=== PATIENT | male | born 1955 | race Two or more races ===

== ENCOUNTER 2024-11-25 10:15 | Inpatient (IN) | payer OTHER, MEDICAID ==
[~2024-11-25] VITALS: Ht 175.3 cm; Wt 71.5 kg
--- NOTE | 2024-11-25 10:45 | ED.PDOC ---
History of Present Illness HPI Comments 69 y/o M, with PMHx of DM, HTN, and HLD presents to the ED for CC of generalized weakness. Patient reports, he has been experiencing symptoms of generalized weakness with associated sweats, malaise, and dysuria x1day. Patient denies fever, headache, vomiting, or diarrhea. No other symptoms or modifying factors present at this time. Time Seen by MD: 10:38 Reviewed Notes: Nurses Notes, Medications, Allergies Information Source: Patient Mode of Arrival: Ambulatory Severity: Moderate Timing: Days Duration: Since onset Prehospital treatment: None Past Medical History PAST MEDICAL HISTORY: DM, High Lipids, HTN Surgical History: Denies all surgeries Family History Family History: Unknown Social History Smoker: Non-Smoker Alcohol: Denies ETOH Use Drugs: Denies Drug Use Lives In: Home Constitutional: reports: malaise, sweats, weakness; denies: chills, diaphoresis, fatigue, fever, others EENTM: denies: blurred vision, double vision, ear bleeding, ear discharge, ear drainage, ear pain, ear ringing, eye pain, eye redness, hearing loss, mouth pain, mouth swelling, nasal discharge, nose bleeding, nose congestion, nose pain, photophobia, tearing, throat pain, throat swelling, voice changes, others Respiratory: denies: cough, hemoptysis, orthopnea, SOB at rest, shortness of breath, SOB with excertion, stridor, wheezing, others Cardiovascular: denies: chest pain, dizzy spells, diaphoresis, Dyspnea on exertion, edema, irregular heart beat, left arm pain, lightheadedness, palpitations, PND, syncope, others Gastrointestinal: denies: abdomen distended, abdominal pain, blood streaked bowels, constipated, diarrhea, dysphagia, difficulty swallowing, hematemesis, melena, nausea, poor appetite, poor fluid intake, rectal bleeding, rectal pain, vomiting, others Genitourinary: reports: dysuria; denies: burning, flank pain, frequency, hematuria, incontinence, penile discharge, penile sore, pain, testicle pain, testicle swelling, urgency, others Neurological: denies: dizziness, fainting, headache, left sided numbness, left sided weakness, numbness, paresthesia, pre-existing deficit, right sided numbness, right sided weakness, seizure, speech problems, tingling, tremors, weakness, others Musculoskeletal: denies: back pain, gout, joint pain, joint swelling, muscle pain, muscle stiffness, neck pain, others Integumetry: denies: bruises, change in color, change in hair/nails, dryness, laceration, lesions, lumps, rash, wounds, others Allergic/Immunocompromised: denies: Difficulty Healing, Frequent Infections, Hives, Itching, others Hematologic/Lymphatic: denies: anemia, blood clots, easy bleeding, easy bruising, swollen glands, others Endocrine: denies: excessive hunger, excessive sweating, excessive thirst, excessive urination, flushing, intolerance to cold, intolerance to heat, unexplained weight gain, unexplained weight loss, others Psychiatric: denies: anxiety, bipolar disorder, depression, hopeless, panic disorder, schizophrenia, sleepless, suicidal, others All Other Systems: Reviewed and Negative Physical Exam General Appearance: Moderate Distress HEENT: Normal ENT Inspection, Pharynx Normal, TMs Normal Neck: Full Range of Motion, Non-Tender, Normal, Normal Inspection Respiratory: Chest Non-Tender, Lungs Clear, No Accessory Muscle Use, No Respiratory Distress, Normal Breath Sounds Cardiovascular: No Edema, No JVD, No Murmur, No Gallop, Normal Peripheral Pulses, Regular Rate/Rhythm Breast Exam: Deferred Gastrointestinal: No Organomegaly, Non Tender, No Pulsatile Mass, Normal Bowel Sounds, Soft Genitalia: Deferred Pelvic: Deferred Rectal: Deferred Extremities: No calf tenderness, Normal capillary refill, Normal inspection, Normal range of motion, Non-tender, No pedal edema Musculoskeletal : Apperance: Normal Neurologic: Alert, real time trader II-XII nml as Tested, No Motor Deficits, Normal Affect, Normal Mood, No Sensory Deficits Cerebellar Function: Normal Reflexes: Normal Skin: Dry, Normal Color, Warm Peripheral Pulses: 3+ Radial (R), 3+ Radial (L) Lymphatic: No Adenopathy Was a procedure done? Was a procedure done?: No Differential Dx Considerations may include: UTI, HYPOGLYCEMIA, ELECTROLYTE IMBALANCE X-Ray, Labs, Meds, VS Vital Signs Date Time Temp Pulse Resp B/P (MAP) Pulse Ox O2 Delivery O2 Flow Rate FiO2 11/25/24 11:32 100.1 100.1 11/25/24 11:15 125 16 121/96 (104) 95 11/25/24 11:15 Room Air* 0 21 11/25/24 11:08 130 11/25/24 11:07 97.7 131 18 123/70 (87) 95 97.7 Lab Test 11/25/24 11:15 11/25/24 10:58 Range/Units White Blood Count 22.5 H 4.4-10.8 10^3/uL Red Blood Count 5.00 4.5-5.90 10^6/uL Hemoglobin 14.3 13.5-17.5 g/dL Hematocrit 41.5 41.0-53.0 % Mean Corpuscular Volume 83.1 80.0-100.0 fL Mean Corpuscular Hemoglobin 28.6 28.0-32.0 pg Mean Corpuscular Hemoglobin Concent 34.4 32.0-36.0 g/dL Red Cell Distribution Width 13.9 11.8-14.3 % Platelet Count 226 140-450 10^3/uL Mean Platelet Volume 8.0 6.9-10.8 fL Neutrophils (%) (Auto) 37.0-80.0 % Lymphocytes (%) (Auto) 10.0-50.0 % Monocytes (%) (Auto) 0.0-12.0 % Basophils (%) (Auto) 0.0-2.0 % Neutrophils # (Auto) 1.6-8.6 10 ^3/uL Lymphocytes # (Auto) 0.4-5.4 10 ^3/uL Monocytes # (Auto) 0-1.3 10 ^3/uL Differential Total Cells Counted 100.0 100 Neutrophils % (Manual) 89 H 37.0-80.0 Band Neutrophils % (Manual) 0 Lymphocytes % (Manual) 3 L 10.0-50.0 Monocytes % (Manual) 6 0-12 Eosinophils % (Manual) 0 0-7 Basophils % (Manual) 0 0.0-2.0 Metamyelocytes % (manual) 2 Myelocytes % (Manual) 0 Promyelocytes % (Manual) 0 Blast Cells % (Manual) 0 Reactive Lymphocytes 0 Platelet Estimate Adequate Sodium Level 136 136-145 mmol/L Potassium Level 4.1 3.5-5.1 mmol/L Chloride Level 101 98-107 mmol/L Carbon Dioxide Level 25 20-31 mmol/L Anion Gap 10 5-15 Blood Urea Nitrogen 13 9-23 mg/dL Creatinine 0.99 0.700-1.30 mg/dL Glomerular Filtration Rate Calc 81 >90 mL/min BUN/Creatinine Ratio 13.1 10.0-20.0 Serum Glucose 201 H 74-106 mg/dL Calcium Level 9.2 8.7-10.4 mg/dL Troponin I High Sensitivity 5 </=54 ng/L POC Glucose 203 H 70-106 mg/dl Patient alert. Complaining of generalized weakness. Blood sugar elevated. Vitals stable. Cardiac marker within normal limits. WBC elevated. He is tachycardic. No leg swelling. Unknown where he is getting his white cell count. CT of the abdomen. Establish intravenous access. Was given fluids. Was given Rocephin. Was given Flagyl. Continue to monitor. Time of 1ST Reevaluation: 11:08 Reevaluation 1ST: Unchanged Patient Education/Counseling: Diagnosis, Treatment Family Education/Counseling: No Family Present Departure 1 Departure Time of Disposition: 13:14 Impression: Primary Impression: Uncontrolled diabetes mellitus Qualified Codes: E13.65 - Other specified diabetes mellitus with hyperglycemia Additional Impressions: Generalized weakness Leukocytosis Qualified Codes: D72.829 - Elevated white blood cell count, unspecified Disposition: ADMITTED INPATIENT Admit to: Med Surg Condition: Guarded Critical Care Note Critical Care Time?: No Stability Stability form required: No Heart Score Heart Score: Heart Score Response (Comments) Value History N/A 0 EKG N/A 0 Age N/A 0 Risk Factors N/A 0 Troponin N/A 0 Total 0 I personally scribed for JOSE EDUARDO GENTILE MD ([email or web address]) on 11/25/24 at 10:45. Electronically submitted by Ileana Kapoor [email or web address]). JOSE EDUARDO GENTILE MD November 25, 2024 10:45
[2024-11-25 11:32] LABS: Hematocrit 41.5 % (41.0-53.0); Hemoglobin 14.3 g/dL (13.5-17.5); Mean Corpuscular Hemoglobin 28.6 pg (28.0-32.0); Mean Corpuscular Hgb Conc. 34.4 g/dL (32.0-36.0); Mean Corpuscular Volume 83.1 fL (80.0-100.0); Platelet Count (auto) 226 10^3/uL (140-450); Red Cell Distribution Width 13.9 % (11.8-14.3); White Blood Cell 22.5 10^3/uL (4.4-10.8)
[2024-11-25 11:41] LABS: Chloride 101 mmol/L (98-107); Potassium 4.1 mmol/L (3.5-5.1)
[2024-11-25 11:42] LABS: Anion Gap 10 (5-15); Calcium 9.2 mg/dL (8.7-10.4); Carbon Dioxide 25 mmol/L (20-31); Sodium 136 mmol/L (136-145)
[2024-11-25 11:47] LABS: BUN/Creatinine Ratio 13.1 (10.0-20.0); Blood Urea Nitrogen 13 mg/dL (9-23)
--- NOTE | 2024-11-25 11:47 | DVH ---
CHEST RADIOGRAPH Indication: sob Technique: Single frontal view of the chest was obtained COMPARISON: None FINDINGS: Lines and Tubes: None Lungs: Hazy opacity in the right lower lobe. Pleura: No effusion. No pneumothorax. Cardiomediastinal contours: Unremarkable Bones: Unremarkable IMPRESSION: Hazy airspace opacity in the right lower lobe may represent atelectasis or developing pneumonia. Cli nical correlation advised.
[2024-11-25 11:48] LABS: Glucose 201 mg/dL (74-106)
[2024-11-25 11:49] LABS: Band Neutrophils % (manual) 0; Basophils % (manual) 0 (0.0-2.0); Blast Cells 0; Eosinophils % (manual) 0 (0-7); Myelocytes % 0; Promyelocytes % 0; Reactive Lymphocytes 0
[2024-11-25 12:34] LABS: Lymphocytes % (manual) 3 (10.0-50.0); Metamyelocytes % 2; Monocytes % (manual) 6 (0-12)
[2024-11-25 12:35] LABS: Platelet Estimate Adequate
--- NOTE | 2024-11-25 13:48 | DVH ---
Exam: CT CT AB PEL WO CON-NO ORAL OR IV History: colitis Comparison Study: None TECHNIQUE: Multidetector CT of the abdomen and pelvis without IV contrast. Axial, coronal and sagitta l multiplanar reformats were obtained from the axial data set by the technologist. Radiation Dose Information: CT Dose: CTDI volume is 6.28 mGy. Dose-length product is 357.59 mGy*cm FINDINGS: Bibasilar atelectasis. Partially visualized heart is unremarkable. Liver, spleen, gallbladder, pancreas and adrenal glands unremarkable. Subtle 1.2 cm left renal upper pole cyst with 1.4 cm right renal lower pole cyst. Otherwise, kidneys , ureters and urinary bladder are unremarkable. Prostate is enlarged measuring 4.9 x 7.6 x 5.5 cm. Stomach is unremarkable. Small bowel loops unremarkable. Appendix is unremarkable. Moderate to large amount of fecal material within the colon. No evidence of intraperitoneal free air or free fluid. No evidence of aortic aneurysm. No significant lymphadenopathy. Small fat containing bilateral inguinal hernias. No destructive osseous lesions are noted. Sclerotic focus of the left acetabular roof which may represent a bone island with a lucent lesion not excluded . IMPRESSION: No evidence of acute abdominopelvic abnormalities. Moderate to large amount of fecal material within the colon. Findings to suggest colitis. Enlarged prostate. Recommend correlation with PSA.
[2024-11-25] MEDS: POLYETHYLENE GLYCOL 17 GM PWDR PO ONE (14:30)
[2024-11-25] MEDS: LACTULOSE 20Gm/30ML SOLN PO ONE (14:30)
[2024-11-25] MEDS ORDERED: DEXTROSE (50%) 50ML SYRG IV PRN (14:30)
--- NOTE | 2024-11-25 14:41 | DVHHPRES ---
History of Present Illness Resident Creating Document: SHERRILL BARRETT History of Present Illness This is a 69-year-old male with past medical history of type 2 diabetes mellitus, hypertension, dyslipidemia, BPH who presented to the ED with chief complaint of generalized weakness associated with dizziness and recurrent falls. The patient also reported acute epigastric pain associated with dysuria. The patient states that these symptoms started this morning before coming to the ED. The patient rates the pain as 8/10 on the pain scale. Patient described the pain as a sharp pain localized in the epigastrium redo with no specific pattern or radiation. The patient was reports that since yesterday night he started having dysuria and burning sensation. Initial CBC showed a WBC of 22.5. Initial chest x-ray showed a right lower lobe atelectases but pneumonia could not be ruled out. Rest of BMP was grossly unremarkable. We are direct lactic acid, lipase levels, urinalysis and urine culture. We also ordered a CT of the abdomen and pelvis. Patient was started on IV fluids of normal saline at 1000 cc/hour as a bolus. Patient was also started on IV ceftriaxone and metronidazole. Patient will be admitted for further assessment and management. Cardiovascular: HTN, hyperipidemia GI: Constipation Renal/: Benign prostatic enlarg. Endocrine: Diabetes Past Surgical History: None Family History: None Smoke: No ALCOHOL: occassional Drugs: None Lives: with Family Domestic Violence: Neg Review of Systems Constitutional: Yes: Fever, Sweats; No: Chills, Weakness, Malaise, Other Eyes: No: Pain, Vision change, Conjunctivae inflammation, Eyelid inflammation, Other, Redness ENT: No: Ear pain, Ear discharge, Nose pain, Nose discharge, Nose congestion, Mouth pain, Mouth swelling, Throat pain, Throat swelling, Other Respiratory: No: Cough, Dry, Shortness of breath, SOB with excertion, Wheezing, Hemoptysis, Pleuritic Pain, Sputum, Wheezing, Other Cardiovascular: No: Chest Pain, Palpitations, Orthopnea, Paroxysmal Noc. Dyspnea, Edema, Lt Headedness, Other Gastrointestinal: Abdominal Pain, Constipation; No: Nausea, Vomiting, Diarrhea, Melena, Hematochezia, Other Genitourinary: Dysuria; No Frequency, No Incontinence, No Hematuria, No Retention, No Other Musculoskeletal: No: other, neck pain, shoulder pain, arm pain, back pain, hand pain, leg pain, foot pain Skin: No: Rash, Lesions, Jaundice, Bruising, Other Neurological: Weakness; No: Numbness, Incoordination, Change in speech, Confusion, Seizures, Other Allergies: Coded Allergies: NO KNOWN ALLERGIES (Unverified , 11/25/24) Medications Current Medications Medications Dose Ordered Sig/Fartun Route Start Time Stop Time Status Last Admin Dose Admin Acetaminophen 650 mg Q6HP PRN PO 11/25/24 14:15 UNV Enoxaparin Sodium 40 mg DAILY SC 11/26/24 10:00 UNV Diagnostic Test (Pha) 1 strip ACHS 11/25/24 17:00 UNV Insulin Human Regular ACHS SC 11/25/24 17:00 UNV Dextrose 50 ml UD PRN IV 11/25/24 14:30 UNV Atorvastatin Calcium 20 mg DAILY PO 11/25/24 20:00 UNV Tamsulosin HCl 0.4 mg DAILY PO 11/25/24 20:00 UNV Losartan Potassium 25 mg DAILY PO 11/26/24 10:00 UNV Exam Vital Signs Vital Signs Date Time Temp Pulse Resp B/P (MAP) Pulse Ox O2 Delivery O2 Flow Rate FiO2 11/25/24 11:32 100.1 100.1 11/25/24 11:15 125 16 121/96 (104) 95 11/25/24 11:15 Room Air* 0 21 General Appearance: Alert, Oriented X3, Cooperative, No acute distress HEENT: Atraumatic, PERRLA, EOMI, Mucous membr. moist/pink Respiratory: Clear to auscultation, Normal air movement Cardiovascular: Regular rate, Normal S1, Normal S2, No murmurs Abdominal: Normal bowel sounds, Soft, No tenderness, No hepatospenomegaly, No masses Extremities: No clubbing, No cyanosis, No edema, Normal pulses, No tenderness/swelling Skin: No rashes, No breakdown, No significant lesion Neuro: Normal gait, Normal speech, Strength at 5/5 X4 ext, Normal tone, Sensation intact, Cranial nerves 3-12 NL, Reflexes 2+ Psych/Mental Status: Mental status NL, Mood NL Labs/Xrays Labs Test 11/25/24 13:28 11/25/24 11:15 11/25/24 10:58 Range/Units Lactic Acid Level 1.6 0.4-2.0 mmol/L White Blood Count 22.5 H 4.4-10.8 10^3/uL Red Blood Count 5.00 4.5-5.90 10^6/uL Hemoglobin 14.3 13.5-17.5 g/dL Hematocrit 41.5 41.0-53.0 % Mean Corpuscular Volume 83.1 80.0-100.0 fL Mean Corpuscular Hemoglobin 28.6 28.0-32.0 pg Mean Corpuscular Hemoglobin Concent 34.4 32.0-36.0 g/dL Red Cell Distribution Width 13.9 11.8-14.3 % Platelet Count 226 140-450 10^3/uL Mean Platelet Volume 8.0 6.9-10.8 fL Neutrophils (%) (Auto) 37.0-80.0 % Lymphocytes (%) (Auto) 10.0-50.0 % Monocytes (%) (Auto) 0.0-12.0 % Basophils (%) (Auto) 0.0-2.0 % Neutrophils # (Auto) 1.6-8.6 10 ^3/uL Lymphocytes # (Auto) 0.4-5.4 10 ^3/uL Monocytes # (Auto) 0-1.3 10 ^3/uL Differential Total Cells Counted 100.0 100 Neutrophils % (Manual) 89 H 37.0-80.0 Band Neutrophils % (Manual) 0 Lymphocytes % (Manual) 3 L 10.0-50.0 Monocytes % (Manual) 6 0-12 Eosinophils % (Manual) 0 0-7 Basophils % (Manual) 0 0.0-2.0 Metamyelocytes % (manual) 2 Myelocytes % (Manual) 0 Promyelocytes % (Manual) 0 Blast Cells % (Manual) 0 Reactive Lymphocytes 0 Platelet Estimate Adequate Sodium Level 136 136-145 mmol/L Potassium Level 4.1 3.5-5.1 mmol/L Chloride Level 101 98-107 mmol/L Carbon Dioxide Level 25 20-31 mmol/L Anion Gap 10 5-15 Blood Urea Nitrogen 13 9-23 mg/dL Creatinine 0.99 0.700-1.30 mg/dL Glomerular Filtration Rate Calc 81 >90 mL/min BUN/Creatinine Ratio 13.1 10.0-20.0 Serum Glucose 201 H 74-106 mg/dL Calcium Level 9.2 8.7-10.4 mg/dL Troponin I High Sensitivity 5 </=54 ng/L POC Glucose 203 H 70-106 mg/dl Assessment/Plan Assessment/Plan Assessment/Plan Acute abdominal pain possibly due to UTI, R/O pancreatitis Sepsis possibly due to UTI Acute hypoxic respiratory distress likely due to gram +/- bacterial pneumonia Acute generalized weakness and dizziness likely due to above Acute constipation Primary hypertension Type II Diabetes mellitus Dyslipidemia BPH Plan -initial WBC is 22.5, patient is febrile and tachycardic -IV ceftriaxone and metronidazole were given in the ED -continue IV ceftriaxone azithromycin -ordered urinalysis and urine culture -ordered lipase levels -ordered BNP and EKG -start losartan 25 mg daily -start mild sliding scale insulin -start MiraLax and lactulose one dose -resume atorvastatin 20 mg daily and tamsulosin 0.4 mg daily Goals of care discussed with the patient and at bedside for > 30min, FULL CODE Plan discussed with Dr. Austin Plan discussed with: Patient My Orders Orders - SHERRILL BARRETT Procedure Category Date Status Time Admit ADMIT 11/25/24 Transmitted 14:11 Code Status CODE 11/25/24 Transmitted 14:11 Vital Signs [facility] 11/25/24 In Process 14:11 Review Orders With [facility] 11/25/24 In Process Adm. 14:11 Encourage Activity As [facility] 11/25/24 In Process Tolerate 14:11 Acetaminophen Tablet [facility] 11/25/24 Logged (Tylenol Tablet) 14:15 Notify Of Changes [facility] 11/25/24 In Process From Base 14:11 Advance Directive [facility] 11/25/24 In Process 14:11 Basic Metabolic Panel LAB 11/26/24 Verified 04:00 Urinalysis LAB 11/25/24 Logged 14:11 Lipid Panel LAB 11/25/24 Logged 14:11 Urine Bacterial OMER 11/25/24 Logged Culture 14:11 Patient Condition ORDERS 11/25/24 Transmitted 14:11 Allergies [facility] 11/25/24 In Process 14:11 Drug Screen LAB 11/25/24 Logged 14:11 Hemoglobin A1c LAB 11/25/24 Logged 14:11 Enoxaparin Sodium PHA 11/26/24 Logged (Lovenox) 10:00 B-Type Natriuretic LAB 11/25/24 Logged Peptide 14:15 Lipase LAB 11/25/24 Logged 14:15 Glucose Blood PHA 11/25/24 Logged (Accu-Chek Comfort 17:00 Insulin R (Human) PHA 11/25/24 Logged (Insulin R) 17:00 Dextrose 50% Syringe PHA 11/25/24 Logged 14:30 Atorvastatin (Lipitor) PHA 11/25/24 Logged 20:00 Tamsulosin PHA 11/25/24 Logged Hydrochloride (Flomax) 20:00 Losartan Tablet PHA 11/26/24 Logged (Cozaar Tablet) 10:00 Polyethylene Glycol PHA 11/25/24 Verified 17g Powder (Miralax 14:30 Lactulose Oral PHA 11/25/24 Verified 14:30 Date of Service: November 25, 2024 Billing Provider: VLAD AUSTIN MD Common Visit Codes: [id number] INP/OBS CARE (HIGH) Secondary Visit Codes: [id number] CARE PLAN 30 MINUTES SHERRILL BARRETT RESIDENT November 25, 2024 14:41 VLAD AUSTIN MD November 26, 2024 07:19
[2024-11-25 14:56] LABS: Triglycerides 62 mg/dL (< 150)
[2024-11-25 14:57] LABS: LDL Cholesterol 72 mg/dL (< 100)
[2024-11-25 14:58] LABS: Cholesterol 169 mg/dL (< 200)
[2024-11-25 15:01] LABS: HDL Cholesterol 77 mg/dL (40-59)
[2024-11-25] MEDS: SODIUM CHLORIDE 0.9% 1,000 ML IV ONE (15:06)
[2024-11-25] MEDS: cefTRIAXone 1GM/50ML D5W 50 ML IV ONE (15:11)
[2024-11-25] MEDS: metroNIDAZOLE 500MG/100ML 100 ML IV ONE (15:11)
[2024-11-25] MEDS: InsuLIN REG 1unit/0.01ml Soln (100units/ml) SC SCH (17:00)
[2024-11-25] MEDS: ACCU-CHEK COMFORT CURVE STRIP VI SCH (17:00)
[2024-11-25 19:16] LABS: Rapid Influenza A Negative (Negative); Rapid Influenza B Negative (Negative)
[2024-11-25 19:17] LABS: COVID19 ANTIGEN SOFIA FIA NEGATIVE (NEGATIVE)
[2024-11-26] VITALS (9 sets, daily range): BP systolic 98–158; BP diastolic 51–81; PULSE 96–118; RESP 16–20; TEMP 99–101.9; O2SAT 94–98
[2024-11-26] MEDS: ACETAMINOPHEN 325 MG TAB PO PRN (03:41)
[2024-11-26 04:00] LABS: Urine Bacteria None Seen /hpf (None Seen)
[2024-11-26 04:15] LABS: Urine Blood 1+ /uL (Negative); Urine Clarity Clear (Clear); Urine Color Yellow (Yellow); Urine Protein, UAD 1+ (Negative); Urine Specific Gravity 1.031 (1.001-1.035); Urine Squamous Epithelial Cell FEW /hpf (<5); Urine Urobilinogen Normal (Negative); Urine WBC 12 /HPF (0-3)
[2024-11-26 04:22] LABS: Amphetamine Screen, Urine Neg (NEGATIVE); Barbiturate Scree,Urine Neg (NEGATIVE); Benzodiazephine Screen, Urine Neg (NEGATIVE); Opiate Scree,Urine Neg (NEGATIVE); Phencyclidine Screen, Urine Neg (NEGATIVE)
[2024-11-26 04:23] LABS: Cannabinoid Screen, Urine Neg (NEGATIVE); Cocaine Screen, Urine Neg (NEGATIVE)
[2024-11-26 06:28] LABS: Anion Gap 11 (5-15); Carbon Dioxide 22 mmol/L (20-31); Chloride 103 mmol/L (98-107)
[2024-11-26 06:30] LABS: Calcium 8.9 mg/dL (8.7-10.4)
[2024-11-26 06:34] LABS: BUN/Creatinine Ratio 12.2 (10.0-20.0); Blood Urea Nitrogen 11 mg/dL (9-23); Potassium 3.5 mmol/L (3.5-5.1); Sodium 136 mmol/L (136-145)
[2024-11-26 06:48] LABS: Glucose 149 mg/dL (74-106)
[2024-11-26 08:18] LABS: Basophils # (auto) 0 10 ^3/uL (0-0.2); Basophils % (auto) 0.1 % (0.0-2.0); Eosinophils # (auto) 0 10 ^3/uL (0-0.8); Hematocrit 38.9 % (41.0-53.0); Hemoglobin 13.2 g/dL (13.5-17.5); Lymphocytes # (auto) 0.8 10 ^3/uL (0.4-5.4); Lymphocytes % (auto) 4.3 % (10.0-50.0); Mean Corpuscular Hemoglobin 28.6 pg (28.0-32.0); Mean Corpuscular Hgb Conc. 33.9 g/dL (32.0-36.0); Mean Corpuscular Volume 84.2 fL (80.0-100.0); Monocytes # (auto) 1.3 10 ^3/uL (0-1.3); Monocytes % (auto) 7.1 % (0.0-12.0); Neutrophils # (auto) 16.6 10 ^3/uL (1.6-8.6); Neutrophils % (auto) 88.5 % (37.0-80.0); Platelet Count (auto) 197 10^3/uL (140-450); Red Blood Cells 4.63 10^6/uL (4.5-5.90); Red Cell Distribution Width 13.9 % (11.8-14.3); White Blood Cell 18.7 10^3/uL (4.4-10.8)
[2024-11-26] MEDS: cefTRIAXone 1GM/50ML D5W 50 ML IV SCH (12:06)
[2024-11-26] MEDS: ATORVASTATIN 20 MG TAB PO SCH (12:07)
[2024-11-26] MEDS: TAMSULOSIN HYDROCHLORIDE 0.4 MG CAP PO SCH (12:07)
[2024-11-26] MEDS: LOSARTAN POTASSIUM 25 MG TAB PO SCH (12:07)
[2024-11-26] MEDS: AZITHROMYCIN 500MG/ 250ML 250 ML IV SCH (12:07)
[2024-11-26] MEDS: ENOXAPARIN SOD 40 MG/0.4 ML SYRINGE SC SCH (12:08)
--- NOTE | 2024-11-26 14:54 | ECG ---
[facility] Test Date: 2024-11-25 Test Time: 11:08:37 Pat Name: FLOR OBRIEN Department: ER Room: 0291 B Gender: M [employer] [facility] Director: DEBO : 1955 Requested By: JOSE EDUARDO GENTILE Order Number: [id number] Reading MD: Boris Chaudhari Measurements Intervals [place] Rate: 130 P: 79 [place]: 154 QRS: 18 QRSD: 84 T: 77 QT: 303 QTc: 446 Interpretive Statements Sinus tachycardia Electronically Signed On 11-30-2024 21:53:48 PDT by Boris Chaudhari Please click the below link to view image of tracing.
[2024-11-26] MEDS: POLYETHYLENE GLYCOL 17 GM PWDR PO ONE (18:15)
[2024-11-26] MEDS: LACTULOSE 20Gm/30ML SOLN PO ONE (18:15)
--- NOTE | 2024-11-26 18:15 | DVHPN2 ---
Subjective Seen and examined at bedside, patient had a temp today 102F. Cont Abx, give Lactulose for constipation. Patient reports no abdominal pain. Changes from previous H/P or p: No Changes Eyes: No Pain, No Vision change, No Conjunctivae inflammation, No Eyelid inflammation, No Other, No Redness ENT: No Ear pain, No Ear discharge, No Nose pain, No Nose discharge, No Nose congestion, No Mouth pain, No Mouth swelling, No Throat pain, No Throat swelling, No Other Cardiovascular: No Chest Pain, No Palpitations, No Orthopnea, No Paroxysmal Noc. Dyspnea, No Edema, No Lt Headedness, No Other Respiratory: No Cough, No Dry, No Shortness of breath, No SOB with excertion, No Wheezing, No Hemoptysis, No Pleuritic Pain, No Sputum, No Other Gastrointestinal: No Nausea, No Vomiting, No Diarrhea; Constipation; No Melena, No Hematochezia, No Other Genitourinary: Dysuria; No Frequency, No Incontinence, No Hematuria, No Retention, No Other Musculoskeletal: No other, No neck pain, No shoulder pain, No arm pain, No back pain, No hand pain, No leg pain, No foot pain Skin: No Rash, No Lesions, No Jaundice, No Bruising, No Other Objective Vitals Vital Signs Date Time Temp Pulse Resp B/P (MAP) Pulse Ox O2 Delivery O2 Flow Rate FiO2 11/26/24 17:46 99.3 96 20 130/68 (88) 97 99.3 11/26/24 08:00 Room Air* 0 21 Intake/Output Intake and Output 11/26/24 07:00 # Voids 1 General Appearance: Alert, Oriented X3, Cooperative, No acute distress Neck: Carotid [place] Lungs: Clear to auscultation Cardiovascular: Regular rate, Normal S1, Normal S2 Abdomen: No tenderness Psych/Mental Status: Mental status NL Medications Current Medications Medications Dose Ordered Sig/Fartun Route Start Time Stop Time Status Last Admin Dose Admin Acetaminophen 650 mg Q6HP PRN PO 11/25/24 14:15 11/26/24 12:07 650 MG Enoxaparin Sodium 40 mg DAILY SC 11/26/24 10:00 11/26/24 12:08 40 MG Diagnostic Test (Pha) 1 strip ACHS 11/25/24 17:00 11/26/24 12:32 1 STRIP Insulin Human Regular ACHS SC 11/25/24 17:00 11/26/24 06:12 3 UNITS Dextrose 50 ml UD PRN IV 11/25/24 14:30 Atorvastatin Calcium 20 mg DAILY PO 11/25/24 20:00 11/26/24 12:09 20 MG Tamsulosin HCl 0.4 mg DAILY PO 11/25/24 20:00 11/26/24 12:08 0.4 MG Losartan Potassium 25 mg DAILY PO 11/26/24 10:00 11/26/24 12:07 25 MG Ceftriaxone Sodium 50 ml @ 100 mls/hr DAILY IV 11/26/24 10:00 11/26/24 12:06 100 MLS/HR Azithromycin 250 ml @ 125 mls/hr DAILY IV 11/26/24 10:00 11/26/24 12:07 125 MLS/HR Laboratory Results Laboratory Tests 11/26/24 05:11 Chemistry Test 11/26/24 05:11 Calcium Level 8.9 mg/dL (8.7-10.4) Urinalysis Test 11/26/24 03:40 Urine Color Yellow (Yellow) Urine Clarity Clear (Clear) Urine pH 6.0 (5.0-9.0) Urine Specific [place] 1.031 (1.001-1.035) Urine Protein 1+ (Negative) H Urine Ketones 1+ (Negative) H Urine Blood 1+ /uL (Negative) H Urine Nitrite Negative (Negative) Urine Bilirubin Negative (Negative) Urine Urobilinogen Normal mg/dL (Negative) Urine Leukocyte Esterase Negative /uL (Negative) Urine RBC 4 /hpf (0 - 3) Urine Microscopic WBC 12 /HPF (0-3) H Urine Squamous Epithelial Cells Few /hpf (<5) Urine Bacteria None seen /hpf (None Seen) Urine Glucose 4+ mg/dL (Normal) H Microbiology Microbiology Date/Time Source Procedure Growth Status 11/26/24 01:30 Nose MRSA Screen - Final Complete 11/25/24 13:28 Blood Blood Culture - Preliminary NO GROWTH AFTER 24 HOURS OF INCUBATION. Resulted Assessment/Plan Assessment/Plan Acute abdominal pain possibly due to UTI- Abx Sepsis possibly due to UTI Acute hypoxic respiratory distress likely due to gram +/- bacterial pneumonia- Abx Acute generalized weakness and dizziness likely due to above Acute constipation Primary hypertension Type II Diabetes mellitus A1c 7.1 Dyslipidemia BPH Plan discussed with: Patient My Orders Orders - VLAD GONZALEZ MD Procedure Category Date Status Time Lactulose Oral PHA 11/26/24 Transmitted 18:15 Polyethylene Glycol PHA 11/26/24 Transmitted 17g Powder (Miralax 18:15 NS PHA 11/26/24 Transmitted 18:15 Basic Metabolic Panel LAB 11/27/24 Verified 04:00 Complete Blood Count LAB 11/27/24 Verified 04:00 Date of Service: November 26, 2024 Billing Provider: VLAD GONZALEZ MD Common Visit Codes: [id number] INP/OBS CARE(HIGH) VLAD GONZALEZ MD November 26, 2024 18:15
[2024-11-26] MEDS: SODIUM CHLORIDE 0.9% 1,000 ML IV SCH (18:52)
[2024-11-26] MEDS ORDERED: ONDANSETRON HCL 4 MG/2 ML VIAL IV PRN (21:30)
[2024-11-27 05:00] VITALS: BP 128/68; PULSE 91; RESP 19; TEMP 98.3; O2SAT 97
[2024-11-27 07:24] LABS: Basophils # (auto) 0 10 ^3/uL (0-0.2); Basophils % (auto) 0.2 % (0.0-2.0); Eosinophils # (auto) 0 10 ^3/uL (0-0.8); Eosinophils % (auto) 0.2 % (0.0-7.0); Hematocrit 37.3 % (41.0-53.0); Hemoglobin 12.5 g/dL (13.5-17.5); Lymphocytes # (auto) 0.5 10 ^3/uL (0.4-5.4); Lymphocytes % (auto) 3.9 % (10.0-50.0); Mean Corpuscular Hemoglobin 28.4 pg (28.0-32.0); Mean Corpuscular Hgb Conc. 33.6 g/dL (32.0-36.0); Mean Corpuscular Volume 84.4 fL (80.0-100.0); Monocytes # (auto) 1.2 10 ^3/uL (0-1.3); Monocytes % (auto) 8.7 % (0.0-12.0); Neutrophils # (auto) 11.6 10 ^3/uL (1.6-8.6); Platelet Count (auto) 170 10^3/uL (140-450); Red Blood Cells 4.41 10^6/uL (4.5-5.90); Red Cell Distribution Width 13.9 % (11.8-14.3); White Blood Cell 13.3 10^3/uL (4.4-10.8)
[2024-11-27 07:50] LABS: Anion Gap 10 (5-15); Calcium 9.3 mg/dL (8.7-10.4); Carbon Dioxide 23 mmol/L (20-31); Chloride 106 mmol/L (98-107); Potassium 3.9 mmol/L (3.5-5.1); Sodium 139 mmol/L (136-145)
[2024-11-27 07:56] LABS: BUN/Creatinine Ratio 17.9 (10.0-20.0); Blood Urea Nitrogen 15 mg/dL (9-23); Glucose 84 mg/dL (74-106)
[2024-11-27 08:06] LABS: PSA Free 16.1 ng/mL; Prostate Specific Antigen 34.5 ng/mL (0.0-4.0)
[2024-11-27 09:30] VITALS: BP 123/67; PULSE 93; RESP 18; TEMP 98.5; O2SAT 96
--- NOTE | 2024-11-27 11:43 | DVH ---
XY CHEST TWO VIEWS ROUTINE CLINICAL HISTORY: pna COMPARISON: None TECHNIQUE: Frontal and lateral view of the chest was obtained FINDINGS: Lines and Tubes: None Lungs: No focal consolidation. Pleura: No effusion. No pneumothorax. Cardiomediastinal contours: Unremarkable Bones: No acute osseous abnormality. IMPRESSION: No acute cardiopulmonary disease.
[2024-11-27 13:00] VITALS: BP 132/92; PULSE 100; RESP 18; TEMP 99.5; O2SAT 96
[2024-11-27] MEDS ORDERED: LEVO500T91 PO (16:34)
[2024-11-27] MEDS ORDERED: METR-344 PO (16:34)
--- NOTE | 2024-11-27 16:39 | DVHDS2 ---
Discharge Summary Date of Admission November 25, 2024 at 14:11 Date of Discharge: November 27, 2024 Admitting Diagnosis Sepsis Labs/Diagnostic Data: Laboratory Results Test 11/27/24 11:48 11/27/24 06:00 11/26/24 05:11 11/26/24 03:40 POC Glucose 116 mg/dl (70-106) White Blood Count 13.3 10^3/uL (4.4-10.8) Red Blood Count 4.41 10^6/uL (4.5-5.90) Hemoglobin 12.5 g/dL (13.5-17.5) Hematocrit 37.3 % (41.0-53.0) Mean Corpuscular Volume 84.4 fL (80.0-100.0) Mean Corpuscular Hemoglobin 28.4 pg (28.0-32.0) Mean Corpuscular Hemoglobin Concent 33.6 g/dL (32.0-36.0) Red Cell Distribution Width 13.9 % (11.8-14.3) Platelet Count 170 10^3/uL (140-450) Mean Platelet Volume 8.5 fL (6.9-10.8) Neutrophils (%) (Auto) 87.0 % (37.0-80.0) Lymphocytes (%) (Auto) 3.9 % (10.0-50.0) Monocytes (%) (Auto) 8.7 % (0.0-12.0) Eosinophils (%) (Auto) 0.2 % (0.0-7.0) Basophils (%) (Auto) 0.2 % (0.0-2.0) Neutrophils # (Auto) 11.6 10 ^3/uL (1.6-8.6) Lymphocytes # (Auto) 0.5 10 ^3/uL (0.4-5.4) Monocytes # (Auto) 1.2 10 ^3/uL (0-1.3) Eosinophils # (Auto) 0 10 ^3/uL (0-0.8) Basophils # (Auto) 0 10 ^3/uL (0-0.2) Nucleated Red Blood Cells 0.0 % Sodium Level 139 mmol/L (136-145) Potassium Level 3.9 mmol/L (3.5-5.1) Chloride Level 106 mmol/L (98-107) Carbon Dioxide Level 23 mmol/L (20-31) Anion Gap 10 (5-15) Blood Urea Nitrogen 15 mg/dL (9-23) Creatinine 0.84 mg/dL (0.700-1.30) Glomerular Filtration Rate Calc 93 mL/min (>90) BUN/Creatinine Ratio 17.9 (10.0-20.0) Serum Glucose 84 mg/dL (74-106) Calcium Level 9.3 mg/dL (8.7-10.4) Free Prostate Specific Antigen 16.10 ng/mL (N/A) Percent Free Prostate Specific Ag 46.7 % (.) Prostate Specific Antigen Total 34.5 ng/mL (0.0-4.0) Thyroid Stimulating Hormone (TSH) 0.49 uIU/mL (0.55-4.78) Urine Color Yellow (Yellow) Urine Clarity Clear (Clear) Urine pH 6.0 (5.0-9.0) Urine Specific Torrey 1.031 (1.001-1.035) Urine Protein 1+ (Negative) Urine Ketones 1+ (Negative) Urine Blood 1+ /uL (Negative) Urine Nitrite Negative (Negative) Urine Bilirubin Negative (Negative) Urine Urobilinogen Normal mg/dL (Negative) Urine Leukocyte Esterase Negative /uL (Negative) Urine RBC 4 /hpf (0 - 3) Urine Microscopic WBC 12 /HPF (0-3) Urine Squamous Epithelial Cells Few /hpf (<5) Urine Bacteria None seen /hpf (None Seen) Urine Glucose 4+ mg/dL (Normal) Urine Opiates Screen Neg (NEGATIVE) Urine Fentanyl Screen Neg (NEGATIVE) Urine Barbiturates Screen Neg (NEGATIVE) Urine Phencyclidine Screen Neg (NEGATIVE) Urine Amphetamines Screen Neg (NEGATIVE) Urine Benzodiazepines Screen Neg (NEGATIVE) Urine Cocaine Screen Neg (NEGATIVE) Urine Cannabinoids Screen Neg (NEGATIVE) Test 11/25/24 18:29 11/25/24 13:28 11/25/24 11:15 Influenza Type A Antigen Negative (Negative) Influenza Type B Antigen Negative (Negative) SARS-CoV-2 Antigen (Rapid) Negative (NEGATIVE) Lactic Acid Level 1.6 mmol/L (0.4-2.0) Differential Total Cells Counted 100.0 (100) Neutrophils % (Manual) 89 (37.0-80.0) Band Neutrophils % (Manual) 0 Lymphocytes % (Manual) 3 (10.0-50.0) Monocytes % (Manual) 6 (0-12) Eosinophils % (Manual) 0 (0-7) Basophils % (Manual) 0 (0.0-2.0) Metamyelocytes % (manual) 2 Myelocytes % (Manual) 0 Promyelocytes % (Manual) 0 Blast Cells % (Manual) 0 Reactive Lymphocytes 0 Platelet Estimate Adequate Hemoglobin A1c 7.1 % A1C (<5.7) Troponin I High Sensitivity 5 ng/L (</=54) B-Type Natriuretic Peptide 41.64 pg/mL (0-100) Triglycerides Level 62 mg/dL (< 150) Cholesterol Level 169 mg/dL (< 200) LDL Cholesterol 72 mg/dL (< 100) HDL Cholesterol 77 mg/dL (40-59) Lipase 44 U/L (12-53) Other Laboratory Tests 11/27/24 06:00 Brief Hx & Hospital Course: This is a 69-year-old male with past medical history of type 2 diabetes mellitus, hypertension, dyslipidemia, BPH who presented to the ED with chief complaint of generalized weakness associated with dizziness and recurrent falls. The patient also reported acute epigastric pain associated with dysuria. The patient states that these symptoms started this morning before coming to the ED. The patient rates the pain as 8/10 on the pain scale. Patient described the pain as a sharp pain localized in the epigastrium redo with no specific pattern or radiation. The patient was reports that since yesterday night he started having dysuria and burning sensation. Initial CBC showed a WBC of 22.5. Initial chest x-ray showed a right lower lobe atelectases but pneumonia could not be ruled out. Patient was treated with IV Abx, fevers have resolved. CT Abd/Pelvis was done, which showed enlarged prostate, needs outpatient Cystoscopy. Will discharge with Levaquin and Flagyl. Patient advised to stay till tomorrow but wishes to be discharged home now. Operations or Procedures Exam: CT CT AB PEL WO CON-NO ORAL OR IV History: colitis Comparison Study: None TECHNIQUE: Multidetector CT of the abdomen and pelvis without IV contrast. Axial, coronal and sagittal multiplanar reformats were obtained from the axial data set by the technologist. Radiation Dose Information: CT Dose: CTDI volume is 6.28 mGy. Dose-length product is 357.59 mGy*cm FINDINGS: Bibasilar atelectasis. Partially visualized heart is unremarkable. Liver, spleen, gallbladder, pancreas and adrenal glands unremarkable. Subtle 1.2 cm left renal upper pole cyst with 1.4 cm right renal lower pole cyst. Otherwise, kidneys, ureters and urinary bladder are unremarkable. Prostate is enlarged measuring 4.9 x 7.6 x 5.5 cm. Stomach is unremarkable. Small bowel loops unremarkable. Appendix is unremarkable. Moderate to large amount of fecal material within the colon. No evidence of intraperitoneal free air or free fluid. No evidence of aortic aneurysm. No significant lymphadenopathy. Small fat containing bilateral inguinal hernias. No destructive osseous lesions are noted. Sclerotic focus of the left acetabular roof which may represent a bone island with a lucent lesion not excluded. IMPRESSION: No evidence of acute abdominopelvic abnormalities. Moderate to large amount of fecal material within the colon. Findings to suggest colitis. Enlarged prostate. Recommend correlation with PSA. Condition at Discharge: Poor Final Diagnosis/Problems List Acute abdominal pain possibly due to UTI vs Colitis- Abx Sepsis possibly due to UTI Acute hypoxic respiratory distress likely due to gram +/- bacterial pneumonia- Abx Acute generalized weakness and dizziness likely due to above Acute constipation Primary hypertension Type II Diabetes mellitus A1c 7.1 Dyslipidemia BPH Discharge Disposition: Home Discharge Instruct/Medications Diet: Consistent carbohydrate Activity: Light activity Follow Up/Referral: Urology Pulm Medications: See Med [facility] Discharge Statement: "Patient was advised to return to the ER or call 911 if any headaches, dizziness, shortness of breath, chest pain, abdominal pain, bleeding, fevers, or worsening of medical condition. Patient was counseled about treatment plan, medications, possible side effects, patientverbalized understanding. All questions were answered to the best of my ability. This discharge took greater then 30 minutes in planning, reviewing documentation, counseling the patient, and discussing with other team members." ASSESSMENT ASSESSMENT Assessment Date of Service: November 27, 2024 Billing Provider: VLAD GONZALEZ MD Common Visit Codes: 27453-NQC/OBS DISCH DAY >30min VLAD GONZALEZ MD November 27, 2024 16:39
[2024-11-27 17:30] VITALS: BP 130/64; PULSE 101; RESP 18; TEMP 100.2; O2SAT 95
[2024-11-27 17:34] VITALS: BP 142/77
== END 2024-11-27 18:31 | disposition home or self-care (01) | DRG 871 ==
LOC: ER 10:15 → OVERFLOW 14:11 → WEST WING 23:59
PROVIDERS: ADMIT Hospitalist; ATTEND Internal Medicine
DX: A41.9 Sepsis, unspecified organism (principal); J15.69 Pneumonia due to other Gram-negative bacteria; J15.9 Unspecified bacterial pneumonia; N39.0 Urinary tract infection, site not specified; R06.03 Acute respiratory distress; Z20.822 Contact with and (suspected) exposure to COVID-19; K59.00 Constipation, unspecified; E78.5 Hyperlipidemia, unspecified; N40.0 Benign prostatic hyperplasia without lower urinary tract symptoms; I10 Essential (primary) hypertension; K52.9 Noninfective gastroenteritis and colitis, unspecified; E11.9 Type 2 diabetes mellitus without complications; Z79.899 Other long term (current) drug therapy
CPT/HCPCS: 36415; 71045; 71046; 74176; 80048; 80061; 80307; 81001; 82962; 83036; 83605; 83690; 83880; 84154; 84443; 84484; 85007; 85025; 85027; 87040; 87081; 87086; 87426; 87804; 93005; 96365; G0378; J1815; J3490